=== PATIENT | female | born 1965 | race Caucasian/White ===

== ENCOUNTER 2017-06-30 16:40 | Emergency (ER) | payer SELFPAY ==
[~2017-06-30] VITALS: Ht 172.7 cm; Wt 76.0 kg
[~2017-06-30 16:40] MED LIST: LRT5 PO
[2017-06-30 17:01] VITALS: BP 122/79; PULSE 68; TEMP 36.4; O2SAT 98; Ht 172.7 cm; Wt 76.0 kg
== END 2017-06-30 17:15 | disposition left against medical advice (07) ==
LOC: C.EDB 16:42 → C.EDC 17:15
DX: R10.31 Right lower quadrant pain (principal)